=== PATIENT | female | born 1995 | race Hispanic/Latino ===

== ENCOUNTER 2017-10-15 08:26 | Emergency (ER) | payer OTHER, SELFPAY ==
--- NOTE | 2017-10-15 12:54 | RAD ---
RIGHT WRIST 3 VIEWS: Date: 10/15/17 HISTORY: Right hip pain. Patient denies trauma. FINDINGS/IMPRESSION: No bony abnormality is seen. POS: [facility]
== END 2017-10-15 12:23 | disposition home or self-care (01) ==
LOC: ERS 08:26
DX: M79.89 Other specified soft tissue disorders (principal)

== ENCOUNTER 2017-11-03 15:44 | Emergency (ER) | payer SELFPAY ==
[2017-11-03 16:23] LABS: #Basophils 0.1 thou/uL (0.0-0.2); #Eosinphils 0.1 thou/uL (0.0-0.7); #Lymphocytes 2.9 thou/uL (1.20-3.40); #Monocytes 0.5 thou/uL (0.11-0.59); #Neutrophils 4.7 thou/uL (1.40-6.50); %Eosinophils 1.4 % (0.0-10.0); %Lymphocytes 35.3 % (28.0-48.0); %Monocytes 5.9 % (0.0-4.0); %Neutrophils 56.4 % (31.0-61.0); Hemoglobin 12.9 g/dL (12.0-16.0); Mean Corpuscular HGB CONC 32.2 g/dL (32.0-36.0); Mean Corpuscular Hemoglobin 30.3 pg (25.0-35.0); Mean Corpuscular Volume 94.1 fl (77.0-87.0); Mean Platelet Volume 6.8 fL (7.4-10.4); Platelet Count 375 thou/uL (130-400); RBC Distribution Width 12.2 % (11.5-14.5); Red Blood Cell (RBC) Count 4.27 mill/uL (4.00-5.20); White Blood Cell (WBC) Count 8.3 thou/uL (4.8-10.8)
[2017-11-03 19:24] LABS: Bilirubin Small (Negative); Blood, Urine Large (Negative); Clarity CLOUDY (Clear); Glucose, Urine (Dipstick) Negative (Negative); Leukocyte Small (Negative); Nitrite Negative (Negative); Protein, Urine (Dipstick) Trace mg/dL (Neg-Trace); Specific Gravity, Urine 1.029 (1.002-1.036); pH, Urine 5.5 (5.0-9.0)
[2017-11-03 19:26] LABS: Bacteria/HPF 1+ HPF (None Seen); Hyaline Casts/LPF 7-10 HYALINE CAST LPF (0-3 Hyaline); Pathc Cast-AUWi Flag 2.03 (0-2.49); RBC/HPF GREATER THAN 50-TNTC HPF (0-3)
--- NOTE | 2017-11-03 21:21 | ULT ---
PELVIC ULTRASOUND: 11/03/17 Transabdominal and endovaginal ultrasound of pelvis performed. HISTORY: Vaginal bleeding. The uterus has a normal appearance. Endometrium is normal measured at 5 mm. There is no evidence of i ntrauterine gestational sac. Patient reportedly has a positive test. Ovaries are identified and appear unremarkable. Color doppler with spectral analysis demonstrates blo od flow to both ovaries. Small amount of free fluid is seen in the cul-de-sac. IMPRESSION: No evidence of intrauterine gestation by ultrasound. Ectopic is not excluded. Findings may represent early intrauterine gestation. Recommend serial HCG levels for monitoring. POS: [facility]
[2017-11-05 09:52] LABS: Chlamydia by PCR Not Detected (NotDetected); GC by PCR Not Detected (NotDetected)
== END 2017-11-03 20:09 | disposition home or self-care (01) ==
LOC: ERS 15:44
DX: O20.0 Threatened abortion (principal); O99.212 Obesity complicating pregnancy, second trimester; Z3A.21 21 weeks gestation of pregnancy
CPT/HCPCS: 36415; 76856; 81003; 81015; 84702; 85025; 87086; 87480; 87491; 87510; 87591; 87660

== ENCOUNTER 2017-11-05 09:49 | Emergency (ER) | payer SELFPAY | END 2017-11-05 12:05 | disposition home or self-care (01) | LOC: ERS 09:49 | DX: O03.9 Complete or unspecified spontaneous abortion without complication (principal); E66.9 Obesity, unspecified | CPT/HCPCS: 36415; 84702; 99284 ==

== ENCOUNTER 2023-04-12 20:22 | Emergency (ER) | payer OTHER, SELFPAY ==
[2023-04-12] MEDS ORDERED: Ipratropium/Albuterol 3 ML NEB ONE (21:07)
[2023-04-12] MEDS ORDERED: Dexamethasone 4 MG TAB ONE (21:29)
[2023-04-12 22:21] LABS: SARS-CoV-2 NAA Rapid Test DETECTED (NotDetected)
== END 2023-04-12 22:27 | disposition home or self-care (01) ==
LOC: ERS 20:22
DX: B34.9 Viral infection, unspecified (principal); R06.2 Wheezing; E66.9 Obesity, unspecified; Z20.822 Contact with and (suspected) exposure to COVID-19
CPT/HCPCS: 99284; J7620; J8540

== ENCOUNTER 2024-08-16 06:46 | Emergency (ER) | payer SELFPAY ==
[2024-08-16 07:23] LABS: #Basophils 0.06 10x3/uL (0.0-0.2); %Basophils 0.7 % (0.0-1.0); %Eosinophils 2.7 % (0.0-10.0); %Lymphocytes 42.3 % (21.0-51.0); %Monocytes 4.8 % (0.0-10.0); Hematocrit 38.7 % (36.0-47.0); Hemoglobin 12.7 g/dL (12.0-16.0); Mean Corpuscular HGB CONC 32.8 g/dL (32.0-36.0); Mean Corpuscular Hemoglobin 29.3 pg (27.0-31.0); Mean Corpuscular Volume 89.4 fL (78.0-98.0); Mean Platelet Volume 8.9 fL (7.4-10.4); Platelet Count 354 10x3/uL (130-400); Red Blood Cell (RBC) Count 4.33 mill/uL (4.20-5.40)
[2024-08-16 07:41] LABS: ALT (SGPT) 45 U/L (8-55); AST (SGOT) 26 U/L (5-34); Albumin 4.2 g/dL (3.5-5.0); Alkaline Phosphatase 86 U/L (40-110); Anion Gap 16 mmol/L (10-20); BUN (Urea Nitrogen) 17 mg/dL (7.0-18.7); Bilirubin, Total 0.4 mg/dL (0.2-1.2); Calc. Creatinine Clearance 0 mL/min (70-130); Calcium 9.4 mg/dL (7.8-10.44); Carbon Dioxide 21 mmol/L (22-29); Chloride 103 mmol/L (98-107); Estimated GFR 125; Globulin 3.9 g/dL (2.4-3.5); Glucose 105 mg/dL (70-105); Lipase 23 U/L (8-78); Potassium 3.7 mmol/L (3.5-5.1); Protein, Total 8.1 g/dL (6.0-8.3); Sodium 136 mmol/L (136-145)
[2024-08-16 09:06] LABS: Pregnancy Test - Urine (BHCG) Negative (Negative); Pregu Control Background? CLEAR/WHITE (CLR/WHITE); Pregu Control Bar Appear? YES (CONTROL BAR); Specific Gravity 1.017 (1.002-1.036)
[2024-08-16] MEDS ORDERED: Ondansetron PF 4 MG/2 ML Vial ONE (09:15)
[2024-08-16] MEDS ORDERED: Ketorolac Tromethamine 30 MG (1 mL) VIAL ONE (09:15)
[2024-08-16 09:21] LABS: Bilirubin Negative (Negative); Blood, Urine Negative (Negative); CAUTI Indications for Culture Acute Hematuria; Clarity Clear (Clear); Glucose, Urine (Dipstick) Normal (Negative); Ketone, Urine Negative (Negative); Leukocyte Negative Leu/uL (Negative); Nitrite Negative (Negative); Protein, Urine (Dipstick) Negative (Neg-Trace); RBC/HPF None Seen HPF (0-3); Specific Gravity, Urine 1.018 (1.002-1.036); Squamous Epithelial 0-3 HPF (0-3); Urobilinogen Normal mg/dL (Less than 2); pH, Urine 5.5 (5.0-9.0)
[2024-08-16 09:55] LABS: Bacteria/HPF Rare-Few HPF (None Seen)
[2024-08-16 09:56] LABS: Urine Culture Reflex No No
== END 2024-08-16 10:54 | disposition home or self-care (01) ==
LOC: ERS 06:46
DX: K80.50 Calculus of bile duct without cholangitis or cholecystitis without obstruction (principal); K82.8 Other specified diseases of gallbladder; F17.210 Nicotine dependence, cigarettes, uncomplicated
CPT/HCPCS: 76705; 80053; 81001; 81025; 83690; 85025; 96374; 96375; J1885; J2405